=== PATIENT | male | born 1955 | race Caucasian/White ===

== ENCOUNTER 2020-09-08 12:49 | Outpatient (RCR) | payer OTHER, SELFPAY | END 2020-11-20 11:24 | disposition home or self-care (01) | LOC: HO.WCC 12:49 | PROVIDERS: PCP Internal Medicine; Visit Provider Physician Assistant | DX: E11.621 Type 2 diabetes mellitus with foot ulcer (principal); L97.525 Non-pressure chronic ulcer of other part of left foot with muscle involvement without evidence of necrosis; T87.81 Dehiscence of amputation stump | CPT/HCPCS: 11042; 11043; 15271; 15275; 99212; Q4187 ==